=== PATIENT | male | born 1970 | race Caucasian/White ===

== ENCOUNTER 2018-05-06 15:25 | Emergency (ER) | payer BC ==
--- NOTE | 2018-05-06 15:44 | EDM.PDOC ---
ED HPI GENERAL MEDICAL PROBLEM - General Chief Complaint: Respiratory Problem Stated Complaint: TROUBLE BREATHING Time Seen by Provider: 05/06/18 15:28 Source of Information: Reports: Patient History Limitations: Reports: No Limitations - History of Present Illness INITIAL COMMENTS - FREE TEXT/NARRATIVE: HISTORY AND PHYSICAL: History of present illness: Patient is a 47-year-old male who presents to the emergency room with complaints of cough 1 month. He states in the cough initially started it was " a tickle" which have progressively gotten worse and now he has some tightness to his mid chest with coughing. He has had subjective fevers over the past several days, although did not check his temperature at home. States his was adamant about him being evaluated, seeking to the emergency room today. He denies any shortness of breath or dyspnea. Denies any abdominal pain, nausea , vomiting, diarrhea or constipation. He has been eating and drinking appropriately. Denies any previous tobacco/smoking use. No other history of lung disease or conditions. Review of systems: As per history of present illness and below otherwise all systems reviewed and negative. Past medical history: As per history of present illness and as reviewed below otherwise noncontributory. Surgical history: As per history of present illness and as reviewed below otherwise noncontributory. Social history: See social history for further information Family history: As per history of present illness and as reviewed below otherwise noncontributory. Physical exam: General: Well-developed and well-nourished 47-year-old male. Alert and oriented. Nontoxic appearing and in no acute distress. HEENT: Atraumatic, normocephalic, pupils equal and reactive bilaterally, negative for conjunctival pallor or scleral icterus, mucous membranes moist, TMs normal bilaterally, throat clear, neck supple, nontender, trachea midline. No drooling or trismus noted. No meningeal signs. No hot potato voice noted. Lungs: Diminished posterior bases bilaterally, breath sounds equal bilaterally, chest nontender. Heart: S1S2, regular rate and rhythm without overt murmur Abdomen: Soft, nondistended, nontender. Negative for masses or hepatosplenomegaly. Negative for costovertebral tenderness. Pelvis: Stable nontender. Genitourinary: Deferred. Rectal: Deferred. Skin: Intact, warm, dry. No lesions or rashes noted. Extremities: Atraumatic, negative for cords or calf pain. Neurovascular unremarkable. Neuro: Awake, alert, oriented. Cranial nerves II through XII unremarkable. Cerebellum unremarkable. Motor and sensory unremarkable throughout. Exam nonfocal. Notes: Patient states he only has a sensation of chest tightness when he is coughing frequently. Otherwise he does not have any chest pain. Patient does agree to having some lab work done along with EKG and chest x-ray. Patient does have a leukocytosis. EKG shows no acute findings. Sinus rhythm with rate of 98. Vital signs are stable. Oxygen saturation is 94-95% on room air. CXR appears to have a perihilar left middle lobe infiltrate. Admission was offered which he declines. He states he will follow up with his primary care provider or return to the ER as needed. He declines wanting a inhaler as he states that he has difficult time using these at home. He does have a nebulizer machine, with like a refill on his DuoNeb solution. Medication education was reviewed and discussed. Supportive care measures were reviewed and discussed. Voices understanding and is agreeable to plan of care. Denies any further questions or concerns at this time. Diagnostics: CBC, CMP, troponin, EKG, 2 view chest Therapeutics: DuoNeb, Solu-medrol Prescription: Z-pack Medrol Dosepak Duo Neb Dulce Maira. Phenergan with Codeine (#4oz) Impression: Community Acquired Pneumonia Plan: 1. These take your medications as directed. 2. Follow-up with your primary caregiver as we discussed. Return to the ED as needed and as discussed. Definitive disposition and diagnosis as appropriate pending reevaluation and review of above. Head Pain Score (Numeric/FACES): 5 - Related Data Allergies Allergy/AdvReac Type Severity Reaction Status Date / Time No Known Allergies Allergy Verified 05/06/18 15:39 Home Meds: Home Meds Metoprolol Succinate [Toprol XL 50mg] 50 mg PO DAILY 05/22/15 [History] Omeprazole 40 mg PO DAILY 05/22/15 [History] Ranitidine HCl [Ranitidine] 300 mg PO BEDTIME 05/22/15 [History] Vit D3/Folic Acid/B2/B6/B12 [Folgard Tablet] 1 tab PO DAILY 05/22/15 [History] Beclomethasone Dipropionate [Qvar 40 Mcg] 2 inhalation INH ASDIRECTED 07/09/15 [ History] Past Medical History HEENT History: Reports: None Cardiovascular History: Reports: Hypertension Respiratory History: Reports: Asthma, Sleep Apnea Gastrointestinal History: Reports: GERD Genitourinary History: Reports: None Psychiatric History: Reports: None Endocrine/Metabolic History: Reports: Obesity/BMI 30+ Hematologic History: Reports: Anemia Immunologic History: Reports: None Oncologic (Cancer) History: Reports: None Dermatologic History: Reports: None - Past Surgical History GI Surgical History: Social & Family History - Family History Family Medical History: Noncontributory ED ROS GENERAL - Review of Systems Review Of Systems: ROS reveals no pertinent complaints other than HPI. ED EXAM, GENERAL - Physical Exam Exam: See Below (See dictation) Course - Vital Signs Last Recorded V/S: Last Vital Signs Temp 97.5 F 05/06/18 15:40 Pulse 109 H 05/06/18 15:40 Resp 20 05/06/18 15:40 BP 180/99 H 05/06/18 15:40 Pulse Ox 95 05/06/18 16:04 - Orders/Labs/Meds Orders: Active Orders 24 hr Category Date Time Status EKG Documentation Completion [RC] STAT Care 05/06/18 15:45 Active RT Aerosol Therapy [RC] ASDIRECTED Care 05/06/18 15:45 Active Chest 2V [CR] Stat Exams 05/06/18 15:31 Taken Labs: Laboratory Tests 05/06/18 05/06/18 Range/Units 15:59 15:59 WBC 18.99 H (4.0-11.0) K/uL RBC 5.00 (4.50-5.90) M/uL Hgb 15.5 (13.0-17.0) g/dL Hct 43.5 (38.0-50.0) % MCV 87.0 (80.0-98.0) fL MCH 31.0 (27.0-32.0) pg MCHC 35.6 (31.0-37.0) g/dL RDW Std Deviation 43.0 (28.0-62.0) fl RDW Coeff of [place]il[place] 14 (11.0-15.0) % Plt Count 290 (150-400) K/uL MPV 10.90 (7.40-12.00) fL Neut % (Auto) 70.3 (48.0-80.0) % Lymph % (Auto) 14.3 L (16.0-40.0) % [place] % (Auto) 11.6 (0.0-15.0) % Eos % (Auto) 3.4 (0.0-7.0) % Baso % (Auto) 0.4 (0.0-1.5) % Neut # (Auto) 13.3 H (1.4-5.7) K/uL Lymph # (Auto) 2.7 H (0.6-2.4) K/uL [place] # (Auto) 2.2 H (0.0-0.8) K/uL Eos # (Auto) 0.7 (0.0-0.7) K/uL Baso # (Auto) 0.1 (0.0-0.1) K/uL Nucleated RBC % 0.0 /100WBC Nucleated RBCs # 0 K/uL Sodium 136 (136-148) mmol/L Potassium 3.9 (3.5-5.1) mmol/L Chloride 101 (98-107) mmol/L Carbon Dioxide 21.4 (21.0-32.0) mmol/L BUN 16 (7.0-18.0) mg/dL Creatinine 1.3 (0.8-1.3) mg/dL Est Cr Clr Drug Dosing 74.01 mL/min Estimated GFR (MDRD) 58.9 ml/min Glucose 125 H (74-106) mg/dL Calcium 9.0 (8.5-10.1) mg/dL Total Bilirubin 0.6 (0.2-1.0) mg/dL AST 23 (15-37) IU/L ALT 36 (14-63) IU/L Alkaline Phosphatase 76 (46-116) U/L Troponin I < 0.050 (0.000-0.056) ng/mL Total Protein 8.2 (6.4-8.2) g/dL Albumin 3.2 L (3.4-5.0) g/dL Globulin 5.0 H (2.6-4.0) g/dL Albumin/Globulin Ratio 0.6 L (0.9-1.6) Meds: Medications Discontinued Medications Generic Name Dose Route Start Last Admin Trade Name Freq PRN Reason Stop Dose Admin Albuterol/Ipratropium 3 ml 05/06/18 15:45 05/06/18 16:06 Duoneb 3.0-0.5 Mg/3 Ml NEB 05/06/18 15:46 3 ml ONETIME ONE Administration Departure - Departure Time of Disposition: 17:06 Disposition: Home, Self-Care 01 Clinical Impression: Pneumonia - Discharge Information Instructions: Community-Acquired Pneumonia, Adult, [id number] Referrals: PCP,Unknown [Primary Care Provider] - Forms: ED Department Discharge Additional Instructions: The following information is given to patients seen in the emergency department who are being discharged to home. This information is to outline your options for follow-up care. We provide all patients seen in our emergency department with a follow-up referral. The need for follow-up, as well as the timing and circumstances, are variable depending upon the specifics of your emergency department visit. If you don't have a primary care physician on staff, we will provide you with a referral. We always advise you to contact your personal physician following an emergency department visit to inform them of the circumstance of the visit and for follow-up with them and/or the need for any referrals to a consulting specialist. The emergency department will also refer you to a specialist when appropriate. This referral assures that you have the opportunity for follow-up care with a specialist. All of these measure are taken in an effort to provide you with optimal care, which includes your follow-up. Under all circumstances we always encourage you to contact your private physician who remains a resource for coordinating your care. When calling for follow-up care, please make the office aware that this follow-up is from your recent emergency room visit. If for any reason you are refused follow-up, please contact the [facility] Emergency Department at and asked to speak to the emergency department charge nurse. [facility] [address] [place] [address] [facility] [address] [place] [id number] 1. These take your medications as directed. 2. Follow-up with your primary caregiver as we discussed. Return to the ED as needed and as discussed. - My Orders Last 24 Hours: My Active Orders 05/06/18 15:31 Chest 2V [CR] Stat 05/06/18 15:45 EKG Documentation Completion [RC] STAT RT Aerosol Therapy [RC] ASDIRECTED - Assessment/Plan Last 24 Hours: My Active Orders 05/06/18 15:31 Chest 2V [CR] Stat 05/06/18 15:45 EKG Documentation Completion [RC] STAT RT Aerosol Therapy [RC] ASDIRECTED
[2018-05-06] MEDS ORDERED: Albuterol/Ipratropium 3.0-0.5 MG/3 ML Neb Soln NEB ONE (15:45)
[2018-05-06 16:37] LABS: CHLORIDE,CL 101 mmol/L (98-107); SODIUM,NA 136 mmol/L (136-148)
[2018-05-06 17:15] VITALS: BP 147/92
--- NOTE | 2018-05-06 17:27 | CR ---
INDICATION: cough x2 wks, fever on and off x4 days TECHNIQUE: Chest 2 views. COMPARISON: 05/22/15 FINDINGS: Cardiovascular and mediastinum: Heart size and vasculature are normal in caliber and appearance. Mediastinum is within normal limits. Lungs and pleural spaces: Lungs are clear. No sign of infiltrate or mass. No sign of pleural effusion. No pneumothorax. Bones and soft tissues: No significant findings. IMPRESSION: Unremarkable chest. Dictated by: Harry Olivares MD @ 05/06/2018 17:25:00 (Electronically Signed)
== END 2018-05-06 17:15 | disposition home or self-care (01) ==
LOC: MW.ED 15:25
DX: J18.9 Pneumonia, unspecified organism (principal); I10 Essential (primary) hypertension; J45.909 Unspecified asthma, uncomplicated; Z79.899 Other long term (current) drug therapy
CPT/HCPCS: 36415; 71046; 71046-26; 80053; 84484; 85025; 93005; 94640; 99283; 99284-25; J7620-GY

== ENCOUNTER 2023-05-19 08:07 | Day surgery (SDC) | payer BC ==
[~2023-05-19 08:07] MED LIST: ceFAZolin 2 GM in Sodium Chloride 0.9% 50 ML IV ONE
[2023-05-19] MEDS ORDERED: Metoclopramide 10 MG/2 ML SDV IVPUSH PRN (08:26)
[2023-05-19] MEDS ORDERED: Morphine 2 MG/ML SYRINGE IVPUSH PRN (08:26)
[2023-05-19] MEDS ORDERED: HYDROmorphone 1 MG/ML Syringe IVPUSH PRN (08:26)
[2023-05-19] MEDS ORDERED: droPERidol 5 MG/2 ML SDV IVPUSH PRN (08:26)
[2023-05-19] MEDS ORDERED: Albuterol 0.083% 2.5 MG/3 ML Neb Soln NEB PRN (08:26)
[2023-05-19] MEDS ORDERED: fentaNYL 50 MCG/ML SDV IVPUSH PRN (08:26)
[2023-05-19] MEDS ORDERED: Ondansetron 4 MG/2 ML SDV IVPUSH PRN (08:26)
[2023-05-19] MEDS ORDERED: Naloxone 0.4 MG/ML SDV IVPUSH PRN (08:26)
[2023-05-19] MEDS: Lactated Ringers 1,000 ML IV SCH (08:42)
[2023-05-19] MEDS ORDERED: Ropivacaine 0.5% 5 MG/ML 30 ML SDV ONE (09:06)
[2023-05-19] MEDS ORDERED: Propofol 200 MG/20 ML SDV ONE (09:07)
[2023-05-19] MEDS ORDERED: fentaNYL 250 MCG/5 ML SDV ONE (09:07)
[2023-05-19] MEDS ORDERED: Lidocaine 2% 5 ML SDV ONE (09:09)
[2023-05-19] MEDS ORDERED: dexmedeTOMIDine HCl 200 MCG/2 ML SDV ONE (09:28)
[2023-05-19] MEDS ORDERED: Bupivacaine 0.5%/EPINEPHrine 1:200,000 30 ML SDV ONE (09:39)
[2023-05-19] MEDS ORDERED: EPINEPHrine 1 MG/1 ML Amp ONE ×2 (09:40→10:17)
[2023-05-19] MEDS ORDERED: Rocuronium Bromide 50 MG/5 ML Syringe ONE (09:41)
[2023-05-19] MEDS ORDERED: Lidocaine 2% 11 ML Jelly Filled Syringe ONE (09:55)
[2023-05-19] MEDS ORDERED: ceFAZolin 2 GM Vial ONE (10:02)
[2023-05-19] MEDS ORDERED: Dexamethasone 4 MG/ML 5 ML MDV ONE (10:05)
[2023-05-19] MEDS ORDERED: ePHEDrine 50 MG/ML SDV ONE (10:13)
[2023-05-19] MEDS ORDERED: Albuterol 8 GM Inhaler ONE (10:31)
[2023-05-19] MEDS ORDERED: Sugammadex Sodium 200 MG/2 ML VIAL IV ONE (12:08)
[2023-05-19] MEDS ORDERED: Phenylephrine 1% 10 MG/ML SDV ONE (16:17)
[2023-05-19] MEDS ORDERED: Ondansetron 4 MG/2 ML SDV ONE (16:17)
[2023-05-19 16:33] VITALS: BP 121/75; PULSE 88
== END 2023-05-19 13:40 | disposition home or self-care (01) ==
LOC: MW.SDS 08:07
PROVIDERS: ATTEND Orthopaedic Surgery
DX: M75.101 Unspecified rotator cuff tear or rupture of right shoulder, not specified as traumatic (principal); S46.211A Strain of muscle, fascia and tendon of other parts of biceps, right arm, initial encounter; S43.491A Other sprain of right shoulder joint, initial encounter; K22.70 Barrett's esophagus without dysplasia; K59.09 Other constipation; K21.9 Gastro-esophageal reflux disease without esophagitis; E78.00 Pure hypercholesterolemia, unspecified; K92.1 Melena; M77.10 Lateral epicondylitis, unspecified elbow; J30.9 Allergic rhinitis, unspecified; E11.9 Type 2 diabetes mellitus without complications; G47.30 Sleep apnea, unspecified; G47.33 Obstructive sleep apnea (adult) (pediatric); X58.XXXA Exposure to other specified factors, initial encounter; Z79.899 Other long term (current) drug therapy
CPT/HCPCS: 29822; 29826; 29827; 82947; A9270; J0171; J0690; J1100; J2371; J2405; J2704; J2795; J3010; J3490; J7120; C1713

== ENCOUNTER 2023-09-26 07:51 | Emergency (ER) | payer BC ==
[2023-09-26] MEDS: Acetaminophen/HYDROcodone 325-5 MG Tab PO ONE (08:48)
[2023-09-26] MEDS: Ibuprofen 600 MG Tab PO ONE (08:48)
[2023-09-26 08:50] VITALS: BP 143/72; PULSE 72
== END 2023-09-26 08:51 | disposition home or self-care (01) ==
LOC: MW.ED 07:51
DX: K08.89 Other specified disorders of teeth and supporting structures (principal); I10 Essential (primary) hypertension; E78.00 Pure hypercholesterolemia, unspecified; K21.9 Gastro-esophageal reflux disease without esophagitis; E11.9 Type 2 diabetes mellitus without complications; Z79.899 Other long term (current) drug therapy
CPT/HCPCS: 99282; A9270; 99283